=== PATIENT | female | born 1935 | race Caucasian/White ===

== ENCOUNTER 2018-06-10 08:57 | Emergency (ER) | payer MEDICARE ==
[~2018-06-10] VITALS: Ht 167.6 cm; Wt 62.0 kg
[~2018-06-10 08:57] MED LIST: AMIO200T42 PO; C,E,1CAP PO; CEFD300C37 PO; CYCL-259 PO; DOXY100T PO; FURO20TA3 PO; LEVO88TA4 PO; METO25TA35 PO; SPIR25TA5 PO; WARF2.5T73 PO
[2018-06-10 09:25] LABS: BASOPHILS # (AUTO) 0.02 x10^3/uL (0-0.1); BASOPHILS % (AUTO) 0 % (0-1); EOSINOPHILS # (AUTO) 0.12 x10^3/uL (0-0.4); EOSINOPHILS % (AUTO) 2 % (1-7); LYMPHOCYTES # (AUTO) 0.82 x10^3/uL (1-3.4); LYMPHOCYTES % (AUTO) 15 % (22-44); MD NO; MEAN CORPUSCULAR HEMOGLOBIN 31.3 pg (27.0-34.8); MEAN CORPUSCULAR HGB CONC 33.3 g/dL (32.4-35.8); MEAN CORPUSCULAR VOLUME 94.1 fL (80-100); MEAN PLATELET VOLUME 7.8 fL (7.4-10.4); MONOCYTES # (AUTO) 0.39 x10^3/uL (0.2-0.8); MONOCYTES % (AUTO) 7 % (2-9); NEUTROPHILS # (AUTO) 3.97 x10^3/uL (1.8-6.8); NEUTROPHILS % (AUTO) 75 % (42-75); PLATELET COUNT 181 x10^3/uL (130-400); RED CELL DISTRIBUTION WIDTH 14.3 % (9.6-15.2)
[2018-06-10] MEDS ORDERED: SODIUM CHLORIDE FLUSH 10ML SYR IVF ONE (09:30)
[2018-06-10 09:37] LABS: ALBUMIN 3.3 g/dL (3.4-5.0); ANION GAP 8 mmol/L (5-15); CHLORIDE 105 mmol/L (98-107); CREATININE 0.76 mg/dL (0.55-1.02)
[2018-06-10 09:41] LABS: TROPONIN I < 0.015 ng/mL (0.000-0.045)
[2018-06-10 09:54] LABS: INTERNATIONAL NORMALIZED RATIO 1.36 (0.93-1.1); PROTHROMBIN TIME 14.1 Seconds (9.6-11.5)
[2018-06-10 11:17] VITALS: BP 103/70
== END 2018-06-10 11:25 | disposition home or self-care (01) ==
LOC: ED 11:15
DX: I48.91 Unspecified atrial fibrillation (principal); R00.2 Palpitations; I50.9 Heart failure, unspecified
CPT/HCPCS: 36415; 71045; 80048; 82040; 83735; 83880; 84484; 85025; 85610; 93005; 99285